=== PATIENT | male | born 1990 | race Caucasian/White ===

== ENCOUNTER 2019-11-28 16:08 | Emergency (ER) | payer OTHER ==
[2019-11-28 17:06] VITALS: BP 129/99; PULSE 113; RESP 16; TEMP 99.1
--- NOTE | 2019-11-28 17:07 | ED ---
General Adult HPI - General Chief complaint: Recheck/Abnormal Lab/Rx Stated complaint: hemorrhoid Time Seen by Provider: 11/28/19 16:41 Source: patient, RN notes reviewed, old records reviewed Mode of arrival: ambulatory Limitations: no limitations - History of Present Illness Initial comments: 29-year-old male patient presents ED evaluation of what he believes to be a likely hemorrhoid. Patient reports that he noticed a mass and has right perirectal region approximate 5 days ago. His not causing any pain or discomfort however it is causing him significant anxiety. Requesting evaluation. Denies any other complaints. Systemic: Pt denies fatigue, fever/chills, rash. Pt denies weakness, night sweats, weight loss. Neuro: Pt denies headache, visual disturbances, syncope or pre-syncope. HEENT: Pt denies ocular discharge or irritation, otalgia, rhinorrhea, pharyngitis or notable lymphadenopathy. Cardiopulmonary: Pt denies chest pain, SOB, heart palpitations, dyspnea on exertion. Abdominal/GI: Pt denies abdominal pain, n/v/d. : Pt denies dysuria, burning w/ urination, frequency/urgency. Denies new onset urinary or bowel incontinence. MSK: Pt denies myalgia, loss of strength or function in extremities. Neuro: Pt denies new onset weakness, paresthesias. - Related Data Allergies Allergy/AdvReac Type Severity Reaction Status Date / Time No Known Allergies Allergy Verified 11/28/19 16:14 Review of Systems ROS Statement: Those systems with pertinent positive or pertinent negative responses have been documented in the HPI. ROS Other: All systems not noted in ROS Statement are negative. Past Medical History Past Medical History: No Reported History History of Any Multi-Drug Resistant Organisms: None Reported Past Surgical History: No Surgical Hx Reported Past Psychological History: No Psychological Hx Reported Smoking Status: Never smoker Past Alcohol Use History: Occasional Past Drug Use History: None Reported General Exam - General Exam Comments Initial Comments: Constitutional: NAD, AOX3, Pt has pleasant affect. HEENT: NC/AT, trachea midline, neck supple, no lymphadenopathy. Posterior pharynx non erythematous, without exudates. External ears appear normal, without discharge. Mucous membranes moist. Eyes PERRLA, EOM intact. There is no scleral icterus. No pallor noted. Cardiopulmonary: RRR, no murmurs, rubs or gallops, no JVD noted. Lungs CTAB in anterior and posterior enamorado. No peripheral edema. Abdominal exam: Abdomen soft and non-distended. Abdomen non-tender to palpation in all 4 quadrants. Bowel sounds active in LLQ. No hepatosplenomegaly. No ecchymosis Neuro: CN II-XII grossly intact. No nuchal rigidity. No raccon eyes, no mascorro sign, no hemotympanum. No cervical spinal tenderness. MSK: No posterior calf tenderness bilaterally, homans sign negative bilaterally. Posterior tibialis and radial pulse +2 bilaterally. Sensation intact in upper and lower extremities. Full active ROM in upper and lower extremities, 5/5 stregnth. Rectal: Small internal hemorrhoid noted. No bleeding. Limitations: no limitations Course Vital Signs 11/28/19 11/28/19 11/28/19 16:15 17:05 17:50 Temperature 98 F 99.1 F 99.1 F Pulse Rate 18 L 113 H 113 H Respiratory 153 H 16 16 Rate Blood Pressure 153/89 129/99 129/99 O2 Sat by Pulse 100 98 98 Oximetry Medical Decision Making - Medical Decision Making 29-year-old male patient presents ED evaluation of what he believes to be a likely hemorrhoid. Patient reports that he noticed a mass and has right perirectal region approximate 5 days ago. His not causing any pain or discomfort however it is causing him significant anxiety. Requesting evaluation. Denies any other complaints. Patient reports that he is slightly anxious which she believes is increasing his heart rate. HR 102 Physical exam displayed a small internal hemorrhoid. Patient was discharged outpatient GI follow-up and will be given information for primary care provider. Return to ER if condition worsens. Case discussed with Dr. Gonsales. Disposition Clinical Impression: Internal hemorrhoid Disposition: HOME SELF-CARE Condition: Stable Instructions (If sedation given, give patient instructions): Hemorrhoids (ED) Additional Instructions: Follow-up with primary care provider and GI consult tomorrow. Return to ER if condition worsens in any way. Is patient prescribed a controlled substance at d/c from ED?: No Referrals: None,Stated [Primary Care Provider] - 1-2 days [facility] - 1-2 days Pat Chisholm MD [STAFF PHYSICIAN] - 1-2 days
== END 2019-11-28 17:50 | disposition home or self-care (01) ==
LOC: EC 16:08
DX: K64.8 Other hemorrhoids (principal); F41.8 Other specified anxiety disorders
CPT/HCPCS: 99283

== ENCOUNTER 2019-12-18 18:47 | Emergency (ER) | payer OTHER ==
[2019-12-18] MEDS ORDERED: ALPRAZolam 0.5 MG TAB PO STA (19:20)
--- NOTE | 2019-12-18 19:28 | ED ---
Anxiety HPI - General Chief Complaint: Anxiety Stated Complaint: Anxiety Time Seen by Provider: 12/18/19 18:53 Source: patient Mode of arrival: ambulatory - History of Present Illness Initial Comments: Patient is a 29-year-old male presenting to the emergency room with a chief complaint of anxiety. States the symptoms began over the last few days and the pain gradually increasing in severity. Patient states he felt the "pulses in his hands." States immediately after he went and grabbed his blood pressure machine which gave him erratic readings. Patient states his anxiety increased even more so he came to the ED for evaluation to make sure it is not cardiac related issue. Patient has no previous cardiac history, no family history of early cardiac related , no history of hypertension, dyslipidemia or smoking. Denies any chest pain, nausea, vomiting, blurry vision. States he never had problems with anxiety until recently. 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 Denies any suicidal thoughts or ideations. Denies any homicidal thoughts or ideations. - Related Data Allergies/Adverse Reactions: Allergies Allergy/AdvReac Type Severity Reaction Status Date / Time No Known Allergies Allergy Verified 11/28/19 16:14 Review of Systems ROS Statement: Those systems with pertinent positive or pertinent negative responses have been documented in the HPI. ROS Other: All systems not noted in ROS Statement are negative. Past Medical History Past Medical History: No Reported History History of Any Multi-Drug Resistant Organisms: None Reported Past Surgical History: No Surgical Hx Reported Past Psychological History: No Psychological Hx Reported Smoking Status: Never smoker Past Alcohol Use History: Occasional Past Drug Use History: None Reported General Exam Limitations: no limitations General appearance: alert, anxious Head exam: Present: atraumatic, normocephalic, normal inspection Eye exam: Present: normal appearance, PERRL, EOMI Pupils: Present: normal accommodation ENT exam: Present: normal exam, normal oropharynx Neck exam: Present: normal inspection, full ROM Respiratory exam: Present: normal lung sounds bilaterally Cardiovascular Exam: Present: normal rhythm, tachycardia, normal heart sounds Extremities exam: Present: normal inspection, full ROM Back exam: Present: normal inspection, full ROM Neurological exam: Present: alert, oriented X3 Psychiatric exam: Present: normal affect, anxious Skin exam: Present: warm, dry, intact, normal color Course Vital Signs 12/18/19 18:48 Temperature 98.5 F Pulse Rate 119 H Respiratory 19 Rate Blood Pressure 167/116 O2 Sat by Pulse 98 Oximetry Medical Decision Making - Medical Decision Making Patient is 29-year-old male presenting to the emergency room with a chief complaint of anxiety. Patient "felt his pulses" and immediately ran to obtain his blood pressure and was given erratic readings. Patient worked himself up and came to the ED for evaluation. Physical examination is unremarkable. Patient does appear anxious on evaluation. Patient has no risk factors for ACS. Patient was given 0.5 mg of Xanax in the ED. Our evaluation patient reports improvement in his symptoms. Patient advised to follow-up with a counselor or a therapist. Patient was offered EPS evaluation, he declined. Patient feels comfortable going home. Return parameters thoroughly discussed the patient is understanding and agreeable. Case discussed with physician. Disposition Clinical Impression: Acute anxiety Disposition: HOME SELF-CARE Condition: Stable Instructions (If sedation given, give patient instructions): Generalized Anxiety Disorder (ED) Additional Instructions: Follow-up with a therapist. Return to emergency department if symptoms worsen. Is patient prescribed a controlled substance at d/c from ED?: No Referrals: None,Stated [Primary Care Provider] - 1-2 days Time of Disposition: 19:57
[2019-12-18 20:09] VITALS: BP 140/110; PULSE 93; RESP 15; TEMP 99.3
== END 2019-12-18 20:07 | disposition home or self-care (01) ==
LOC: EC 18:47
DX: F41.9 Anxiety disorder, unspecified (principal)
CPT/HCPCS: 99283